=== PATIENT | male | born 1960 | race Caucasian/White ===

== ENCOUNTER 2023-07-24 04:28 | Inpatient (IN) | payer SELFPAY ==
[2023-07-24] MEDS ORDERED: METOCLOPRAMIDE 10 MG/2mL INJ ONE (04:57)
[2023-07-24] MEDS ORDERED: DIPHENHYDRAMINE 50 MG/ML VIAL ONE (04:57)
[2023-07-24] MEDS ORDERED: ONDANSETRON 4 MG/2 ML VIAL ONE (04:58)
[2023-07-24] MEDS ORDERED: NA CHLORIDE 0.9% 50 ML ONE (04:58)
[2023-07-24] MEDS ORDERED: MORPHINE 4 MG/ML SYR ONE ×2 (04:58→09:54)
[2023-07-24] MEDS ORDERED: NA CHLORIDE 0.9% 1,000 ML ONE ×2 (04:58→09:54)
[2023-07-24] MEDS ORDERED: dexAMETHasone 10 MG/ML VIAL ONE ×3 (04:58→08:04)
[2023-07-24] MEDS ORDERED: CEFTRIAXONE 1000 MG/VIAL ONE ×2 (04:58→07:38)
[2023-07-24] MEDS ORDERED: FAMOTIDINE 20 MG/2 ML VIAL IV ONE (05:26)
[2023-07-24 05:28] LABS: Absolute Lymphocytes (CBC) 1.1 K/uL (0.7-4.9); Hematocrit 43.1 % (39.6-49.0); Lymphocytes % 13.7 % (15.3-44.8); MCV 104.3 fL (80-100); MPV 9.8 fL (7.6-11.3); Platelets 69 thou/uL (152-406); RBC Red Blood Cell Count 4.13 M/uL (4.33-5.43)
[2023-07-24 05:29] LABS: Protime INR 1.27
[2023-07-24 06:04] LABS: Albumin 3.5 g/dL (3.4-5.0); Bilirubin Direct 0.9 mg/dL (0-0.2); Bilirubin Indirect, Calculated 1.8 mg/dL (0.2-0.8); Bilirubin Total 2.7 mg/dL (0.2-1.0); C-Reactive Protein 7.47 mg/L (<3.00); Magnesium 1.8 mg/dL (1.6-2.4); Potassium 3.4 mEq/L (3.5-5.1); Protein, Total 8.5 g/dL (6.4-8.2); Troponin High Sensitivity 9.6 pg/mL (<58.9)
[2023-07-24] MEDS ORDERED: KETOROLAC 30 MG/ML INJ ONE (06:28)
--- NOTE | 2023-07-24 06:53 | ER ---
Nurse's Notes [facility] Name: Bennie Benitez Age: 62 yrs Sex: Male : 1960 Arrival Date: 07/24/2023 Time: 04:28 Bed 20 Private MD: Diagnosis: Acute tonsillitis, unspecified-uvulitis;Dysphagia, oropharyngeal phase Presentation: 07/24 04:38 Chief complaint: Patient states: "I am all sweaty and I've been vomiting blood. I feel as6 like my throat is closing up and I'm having chest pain" onset was 3-4 hr lighter captain. Coronavirus screen: At this time, the client does not indicate any symptoms associated with coronavirus-19. Ebola Screen: No symptoms or risks identified at this time. Initial Sepsis Screen: Does the patient meet any 2 criteria? No. Patient's initial sepsis screen is negative. Does the patient have a suspected source of infection? No. Patient's initial sepsis screen is negative. Risk Assessment: Do you want to hurt yourself or someone else? Patient reports no desire to harm self or others. Onset of symptoms was July 24, 2023 at 01:00. 04:38 Acuity: MIKAYLA 2 as6 04:38 Method Of Arrival: Ambulatory as6 Historical: - Allergies: 04:38 PENICILLINS; as6 - Home Meds: 04:38 None [Active]; as6 - PMHx: 04:38 rheumatic fever ( as a child); as6 - PSHx: 04:38 None; as6 - Immunization history:: Adult Immunizations not up to date. - Social history:: Smoking status: Patient denies any tobacco usage or history of. Patient uses alcohol. - Family history:: not pertinent. Screenin:38 [facility] ED Fall Risk Assessment (Adult) History of falling in the last 3 months, jj7 including since admission No falls in past 3 months (0 pts) Confusion or Disorientation No (0 pts) Intoxicated or Sedated No (0 pts) Impaired Gait No (0 pts) Mobility Assist Device Used No (0 pt) Altered Elimination No (0 pt) Score/Fall Risk Level 0 - 2 = Low Risk Oriented to surroundings, Maintained a safe environment, Educated pt \\T\\ family on fall prevention, incl call for assistance when getting out of bed. Abuse screen: Denies threats or abuse. Nutritional screening: No deficits noted. Tuberculosis screening: No symptoms or risk factors identified. Assessment: 04:38 General: Appears distressed, uncomfortable, Behavior is cooperative, appropriate for j age, anxious. Pain: Complains of pain in thyroid cartilage, right aspect of thyroid and left aspect of thyroid. GI: SPITTING UP BLOOD TINGED PHLEGM Reports nausea, vomiting. EENT: Reports SORE THROAT. 07:00 Reassessment: REPORT GIVEN TO BRIAN DOBBS. jj7 07:25 Reassessment: Pt returned from CT scan. rs5 07:30 General: Appears in no apparent distress. uncomfortable, Behavior is cooperative. Pain: rs5 Complains of pain in neck Pain does not radiate. Pain currently is 7 out of 10 on a pain scale. Quality of pain is described as burning, aching, Pain began 1 day ago. Is continuous. Neuro: Level of Consciousness is awake, alert, obeys commands, Oriented to person, place, time, situation. Cardiovascular: Heart tones S1 S2 present Rhythm is regular. Respiratory: Airway is patent Respiratory effort is even, unlabored, Respiratory pattern is regular, symmetrical, Breath sounds are clear bilaterally. GI: Abdomen is round non-distended, Bowel sounds present X 4 quads. Abd is soft and non tender X 4 quads. : No signs and/or symptoms were reported regarding the genitourinary system. EENT: No signs and/or symptoms were reported regarding the EENT system. EENT: Reports sore throat, pt states "my throats so sore that it's difficult to swallow anything" redness, irritation, and mild swelling noted to back of throat. Derm: Skin is intact, Skin is pink, warm \\T\\ dry. Musculoskeletal: Range of motion: intact in all extremities. 08:00 Reassessment: Patient and/or family updated on plan of care and expected duration. Pain rs5 level reassessed. Patient is alert, oriented x 3, equal unlabored respirations, skin warm/dry/pink. Pain: Complains of pain in neck Pain currently is 3 out of 10 on a pain scale. Quality of pain is described as burning, aching, Is continuous. Neuro:. 08:00 Reassessment: Patient states feeling better. rs5 08:00 Cardiovascular: Denies chest pain. rs5 09:20 Pain: Complains of pain in neck Pain currently is 7 out of 10 on a pain scale. Quality rs5 of pain is described as aching, Is continuous. 09:20 Reassessment: Provider notified pt is experiencing pain . Cardiovascular: Denies chest rs5 pain. 09:30 Reassessment: Provider at bedside. rs5 09:40 Reassessment: Pt has been hospitalized, see [facility] for continuation of pt care. rs5 Vital Signs: 04:37 BP 141 / 86; Pulse 97; Resp 17 S; Temp 97.6(O); Pulse Ox 98% on R/A; Weight 108.86 kg as6 (R); Height 6 ft. 0 in. (R); Pain 7/10; 05:45 BP 130 / 72; Pulse 66; Resp 17; Pulse Ox 93% ; jj7 06:45 BP 133 / 75; Pulse 66; Resp 18; Pulse Ox 98% ; rs5 07:37 BP 139 / 65; Pulse 60; Resp 17; Pulse Ox 99% on R/A; rs5 09:00 BP 131 / 69; Pulse 70; Resp 17; Temp 97.7(O); Pulse Ox 99% on R/A; rs5 04:37 Body Mass Index 32.55 (108.86 kg, 182.88 cm) as6 04:37 Pain Scale: Adult as6 ED Course: 04:37 Patient arrived in ED. as6 04:37 Byron Grace MD is Attending Physician. sp4 04:37 Arm band placed on. EKG completed in triage. Results shown to MD. as6 04:38 Patient has correct armband on for positive identification. Placed in gown. Bed in low jj7 position. Call light in reach. Side rails up X2. 04:38 EKG done, by ED staff, reviewed by Byron Grace MD. jw7 04:39 Jazmine Ribera, RINKU is Primary Nurse. jj7 04:40 Triage completed. as6 04:40 Inserted saline lock: 18 gauge in right antecubital area, using aseptic technique. as6 Blood collected. 04:56 XRAY Chest (1 view) In Process Unspecified. EDMS 05:03 Strep Sent. jj7 05:03 Alcohol Level Sent. jj7 05:03 Influenza Screen (a \\T\\ B) Sent. jj7 05:03 COVID-19 SARS RT PCR Sent. jj7 05:04 Basic Metabolic Panel Sent. jj7 05:04 CBC with Diff Sent. jj7 05:04 LFT's Sent. jj7 05:04 Magnesium Sent. jj7 05:04 NT PRO-BNP Sent. jj7 05:04 PT-INR Sent. jj7 05:04 Troponin HS Sent. jj7 06:51 Harsha Espinosa MD is Hospitalizing Provider. sp4 07:09 CT Soft Tissue Neck W/contr In Process Unspecified. EDMS 07:39 Harsha Espinosa MD is Hospitalizing Provider. hank 09:30 No provider procedures requiring assistance completed. rs5 09:30 Patient admitted, IV remains in place. rs5 Administered Medications: 05:03 Drug: NS 0.9% IV 1000 ml IV at 125 ml/hr continuous Route: IV; Rate: 125 ml/hr; Site: [facility] right antecubital; 05:03 Drug: Ondansetron IVP 4 mg IVP once; over 2 minutes Route: IVP; Site: right antecubital;jj7 05:30 Follow up: Response: Marked relief of symptoms jj7 05:03 Drug: metoCLOPramide IVP 10 mg IVP once; over 1 to 2 minutes Route: IVP; Site: right [facility] antecubital; 05:30 Follow up: Response: Marked relief of symptoms jj7 05:03 Drug: morphine IVP or IV 4 mg IVP once over 4 mins Route: IVP; Infused Over: 4 mins; jj7 Site: right antecubital; 05:30 Follow up: Response: Marked relief of symptoms jj7 05:03 Drug: Rocephin - Rocephin (cefTRIAXone) IVPB 1 grams IVPB once over 30 mins; (mix in 50 jj7 mL NS) Route: IVPB; Infused Over: 30 mins; Site: right antecubital; 05:30 Follow up: IV Status: Completed infusion jj7 05:04 Drug: diphenhydrAMINE IVP 50 mg IVP once Route: IVP; Site: right antecubital; jj7 05:30 Follow up: Response: Marked relief of symptoms jj7 05:04 Drug: Dexamethasone IVP 10 mg IVP once; (not to exceed 40 mg) Route: IVP; Site: right jj7 antecubital; 05:30 Follow up: Response: Marked relief of symptoms jj7 05:14 Drug: Famotidine IVP 20 mg IVP once; dilute with 10 mL 0.9% NaCl; give over 2 minutes jj7 Route: IVP; Site: right antecubital; 07:00 Follow up: Response: No adverse reaction jj7 06:17 Drug: Ketorolac IVP 30 mg IVP once Route: IVP; Site: right antecubital; jj7 06:30 Follow up: Response: Marked relief of symptoms jj7 07:02 Follow up: Response: No adverse reaction jj7 07:30 Drug: Zithromax IVPB 500 mg IVPB once over 1 hrs; mix in 250 mL NS Route: IVPB; Infused rs5 Over: 1 hrs; Site: right antecubital; 07:30 Drug: Decadron - Dexamethasone IVP 10 mg IVP once Route: IVP; Site: right antecubital; rs5 07:30 Drug: Rocephin IV 1 grams IV at per protocol once; Given slow IV push per pharmacy rs5 instructions Route: IV; Rate: per protocol; Site: right antecubital; 08:10 Drug: Potassium PO Effervescent Tablet 25 mEq PO once; dissolve in 4 ounces of water or rs5 juice Route: PO; 08:11 Drug: Decadron - Dexamethasone IVP 10 mg IVP once Route: IVP; Site: right antecubital; rs5 Medication: 04:38 VIS not applicable for this client. jj7 Outcome: 06:52 Decision to Hospitalize by Provider. sp4 07:41 Decision to Hospitalize by Provider. hank 09:30 Admitted to ER Hold. Please see [facility] for further documentation. rs5 09:30 Condition: stable 09:30 Instructed on the need for admit, 14:08 Patient left the ED. aa5 Signatures: Dispatcher [employer] EDRI Ernesto Floyd MD MD cha Calderon, Audri RN RN aa5 Paul Rosales RN RN as6 Johanna Giles RN RN jw7 Jazmine Ribera RN RN jj7 Brian Nguyen RN RN rs5 Byron Grace MD MD sp4 Corrections: (The following items were deleted from the chart) 05:18 05:03 C-REACTIVE PROTEIN+C.LAB.BRZ drawn and sent. jj7 EDRI 09:32 08:00 Reassessment: Patient and/or family updated on plan of care and expected rs5 duration. Pain level reassessed. Patient is alert, oriented x 3, equal unlabored respirations, skin warm/dry/pink. rs5 09:32 08:00 Pain: Complains of pain in neck Pain currently is 3 out of 10 on a pain scale. rs5 Quality of pain is described as burning, aching, Is continuous, rs5 09:57 06:45 BP 130 / 72; Pulse 66bpm; Resp 18bpm; Pulse Ox 98%; jj7 rs5
--- NOTE | 2023-07-24 06:53 | EDPHYS ---
Physician Documentation [facility] Name: Bennie Benitez Age: 62 yrs Sex: Male : 1960 Arrival Date: 07/24/2023 Time: 04:28 Bed 20 Private MD: ED Physician Byron Grace HPI: 07/24 04:40 This 62 yrs old Male presents to ER via Ambulatory with complaints of sore sp4 throat and chest pain . 04:47 Patient is 62-year-old male with no significant past medical history presents with sp4 acute onset of throat discomfort, difficulty swallowing, sensation of throat closure, sore throat feeling unwell overall also complaining of some chest pains. Sore throat and throat swelling began 4 hours prior to arrival. Historical: - Allergies: 04:38 PENICILLINS; as6 - Home Meds: 04:38 None [Active]; as6 - PMHx: 04:38 rheumatic fever ( as a child); as6 - PSHx: 04:38 None; as6 - Immunization history:: Adult Immunizations not up to date. - Social history:: Smoking status: Patient denies any tobacco usage or history of. Patient uses alcohol. - Family history:: not pertinent. ROS: 04:47 Constitutional: Negative for fever, chills, and weight loss, positive sore throat, sp4 positive chest pain, positive vomiting Eyes: Negative for injury, pain, redness, and discharge, 04:47 All other systems are negative, Exam: 04:47 Constitutional: This is a well developed, well nourished patient who is awake, alert, sp4 acutely uncomfortable male, dry heaving on arrival, in acute discomfort Head/Face: Normocephalic, atraumatic. Eyes: Pupils equal round and reactive to light, extra-ocular motions intact. Lids and lashes normal. Conjunctiva and sclera are not injected. Cornea within normal limits. Periorbital areas with no swelling, redness, or edema. ENT: Nares patent. No nasal discharge, no septal abnormalities noted. Tympanic membranes are normal and external auditory canals are clear. Oropharynx positive bilateral significant pharyngeal erythema, positive pharyngeal uvular swelling, no sign of airway obstruction, however patient has trouble tolerating oral secretions. No exudates there is significant uvular swelling Neck: Trachea midline, no thyromegaly or masses palpated, and no cervical lymphadenopathy. Supple, full range of motion without nuchal rigidity, or vertebral point tenderness. Chest/axilla: Normal chest wall appearance and motion. Nontender with no deformity. No lesions are appreciated. Cardiovascular: Regular rate and rhythm with a normal S1 and S2. No gallops, murmurs, or rubs. Normal PMI, no JVD. No pulse deficits. Respiratory: Lungs have equal breath sounds bilaterally, clear to auscultation and percussion. No rales, rhonchi or wheezes noted. No increased work of breathing, no retractions or nasal flaring. Abdomen/GI: Soft, non-tender, with normal bowel sounds. No distension or tympany. No guarding or rebound. No evidence of tenderness throughout. Back: No spinal tenderness. No costovertebral tenderness. Skin: Warm, dry with normal turgor. Normal color with no rashes, no lesions, and no evidence of cellulitis. MS/ Extremity: Pulses equal, no cyanosis. Neurovascular intact. Full, normal range of motion. Neuro: Awake and alert, GCS 15, oriented to person, place, time, and situation. Cranial nerves II-XII grossly intact. Motor strength 5/5 in all extremities. Sensory grossly intact. Psych: Awake, alert, with orientation to person, place and time. Behavior, mood, and affect are within normal limits 04:47 ECG was reviewed by the Attending Physician. EKG at 0 436 there is sinus sp4 tachycardia at 101, no ST elevation or depression, no ectopy, overall normal EKG Vital Signs: 04:37 BP 141 / 86; Pulse 97; Resp 17 S; Temp 97.6(O); Pulse Ox 98% on R/A; Weight 108.86 kg as6 (R); Height 6 ft. 0 in. (R); Pain 7/10; 05:45 BP 130 / 72; Pulse 66; Resp 17; Pulse Ox 93% ; jj7 06:45 BP 133 / 75; Pulse 66; Resp 18; Pulse Ox 98% ; rs5 07:37 BP 139 / 65; Pulse 60; Resp 17; Pulse Ox 99% on R/A; rs5 09:00 BP 131 / 69; Pulse 70; Resp 17; Temp 97.7(O); Pulse Ox 99% on R/A; rs5 04:37 Body Mass Index 32.55 (108.86 kg, 182.88 cm) as6 04:37 Pain Scale: Adult as6 MDM: 04:40 Patient medically screened. sp4 06:51 ED course: Chest X ray - TECHNIQUE: Single AP view of the chest. FINDINGS: Lung volumes sp4 adequate. Cardiac silhouette is normal in size. No pneumothorax. No large pleural effusion. No focal consolidation. No acute bony finding. IMPRESSION: No evidence of acute cardiopulmonary disease. . 07:09 Differential Diagnosis altered mental status, sepsis, flu. Data reviewed: vital signs, sp4 nurses notes, old medical records, lab test result(s), EKG, radiologic studies, CT scan, plain films. Consideration of Admission/Observation Patient was admitted/placed on observation. Escalation of care including admission/observation considered. Management of patient was discussed with the following: Hospitalist: Admitting team . ED course: Patient has a difficult time handling his oral secretions. Patient warrants admission. Ordered CT neck soft tissue with IV contrast to rule out neck abscess. . 07:10 Transition of care: After a detail discussion of the patient's case, care is sp4 transferred to Ernesto Floyd MD. 07/24 04:38 Order name: Basic Metabolic Panel; Complete Time: 06:09 sp4 07/24 04:38 Order name: CBC with Diff; Complete Time: 13:45 sp4 07/24 04:38 Order name: LFT's; Complete Time: 06:09 sp4 07/24 04:38 Order name: Magnesium; Complete Time: 06:09 sp4 07/24 04:38 Order name: NT PRO-BNP; Complete Time: 06:09 sp4 07/24 04:38 Order name: PT-INR; Complete Time: 06:09 sp4 07/24 04:38 Order name: Troponin HS; Complete Time: 06:09 sp4 07/24 04:40 Order name: COVID-19 SARS RT PCR; Complete Time: 06:09 sp4 07/24 04:40 Order name: Influenza Screen (a \T\ B); Complete Time: 06:09 sp4 07/24 04:40 Order name: Alcohol Level; Complete Time: 06:09 sp4 07/24 04:46 Order name: Strep sp4 07/24 05:18 Order name: C-Reactive Protein; Complete Time: 06:09 [facility] 07/24 05:43 Order name: Throat Culture [facility] 07/24 05:44 Order name: CBC Smear Scan; Complete Time: 13:45 [facility] 07/24 10:55 Order name: Phosphorus; Complete Time: 13:45 [facility] 07/24 10:55 Order name: T4 Free; Complete Time: 13:45 [facility] 07/24 10:55 Order name: Magnesium; Complete Time: 13:45 [facility] 07/24 10:55 Order name: Thyroid Stimulating Hormone; Complete Time: 13:45 [facility] 07/24 04:38 Order name: XRAY Chest (1 view); Complete Time: 13:45 [facility] 07/24 06:48 Order name: CT Soft Tissue Neck W/contr; Complete Time: 13:45 [facility] 07/24 13:39 Order name: CT; Complete Time: 13:45 [facility] 07/24 04:38 Order name: EKG; Complete Time: 04:39 [facility] 07/24 08:58 Order name: CONS Physician Consult [facility] 07/24 09:00 Order name: Speech Therapy Consult [facility] 07/24 04:38 Order name: Cardiac monitoring; Complete Time: 04:38 [facility] 07/24 04:38 Order name: EKG - Nurse/Tech; Complete Time: 04:38 [facility] 07/24 04:38 Order name: IV Saline Lock; Complete Time: 04:41 [facility] 07/24 04:38 Order name: Labs collected and sent; Complete Time: 05:04 [facility] 07/24 04:38 Order name: O2 Per Protocol; Complete Time: 04:38 [facility] 07/24 04:38 Order name: O2 Sat Monitoring; Complete Time: 04:38 [facility] 07/24 07:21 Order name: PO challenge; Complete Time: 08:13 hank EC:47 Rate is 101 beats/min. Rhythm is regular, Sinus tachycardia. QRS Dexter is Normal. [place] sp4 interval is normal. QRS interval is normal. QT interval is normal. T waves are Normal. No ST changes noted. Clinical impression: Sinus tachycardia and No evidence of ischemia. Interpreted by me. Reviewed by me. Administered Medications: 05:03 Drug: NS 0.9% IV 1000 ml IV at 125 ml/hr continuous Route: IV; Rate: 125 ml/hr; Site: j right antecubital; 05:03 Drug: Ondansetron IVP 4 mg IVP once; over 2 minutes Route: IVP; Site: right antecubital;jj7 05:30 Follow up: Response: Marked relief of symptoms jj7 05:03 Drug: metoCLOPramide IVP 10 mg IVP once; over 1 to 2 minutes Route: IVP; Site: right [facility] antecubital; 05:30 Follow up: Response: Marked relief of symptoms jj7 05:03 Drug: morphine IVP or IV 4 mg IVP once over 4 mins Route: IVP; Infused Over: 4 mins; jj7 Site: right antecubital; 05:30 Follow up: Response: Marked relief of symptoms jj7 05:03 Drug: Rocephin - Rocephin (cefTRIAXone) IVPB 1 grams IVPB once over 30 mins; (mix in 50 jj7 mL NS) Route: IVPB; Infused Over: 30 mins; Site: right antecubital; 05:30 Follow up: IV Status: Completed infusion jj7 05:04 Drug: diphenhydrAMINE IVP 50 mg IVP once Route: IVP; Site: right antecubital; jj7 05:30 Follow up: Response: Marked relief of symptoms jj7 05:04 Drug: Dexamethasone IVP 10 mg IVP once; (not to exceed 40 mg) Route: IVP; Site: right [facility] antecubital; 05:30 Follow up: Response: Marked relief of symptoms jj7 05:14 Drug: Famotidine IVP 20 mg IVP once; dilute with 10 mL 0.9% NaCl; give over 2 minutes jj7 Route: IVP; Site: right antecubital; 07:00 Follow up: Response: No adverse reaction jj7 06:17 Drug: Ketorolac IVP 30 mg IVP once Route: IVP; Site: right antecubital; jj7 06:30 Follow up: Response: Marked relief of symptoms jj7 07:02 Follow up: Response: No adverse reaction jj7 07:30 Drug: Zithromax IVPB 500 mg IVPB once over 1 hrs; mix in 250 mL NS Route: IVPB; Infused rs5 Over: 1 hrs; Site: right antecubital; 07:30 Drug: Decadron - Dexamethasone IVP 10 mg IVP once Route: IVP; Site: right antecubital; rs5 07:30 Drug: Rocephin IV 1 grams IV at per protocol once; Given slow IV push per pharmacy rs5 instructions Route: IV; Rate: per protocol; Site: right antecubital; 08:10 Drug: Potassium PO Effervescent Tablet 25 mEq PO once; dissolve in 4 ounces of water or rs5 juice Route: PO; 08:11 Drug: Decadron - Dexamethasone IVP 10 mg IVP once Route: IVP; Site: right antecubital; rs5 Disposition Summary: 07/24/23 07:41 Hospitalization Ordered Notes: Hospitalization Status: Observation(07/24/23 07:41) hank Provider: Harsha Espinosa(07/24/23 07:41) hank Location: Telemetry/MedSurg (observation)(07/24/23 07:41) hank Condition: Stable(07/24/23 07:41) hank Problem: new(07/24/23 07:41) hank Symptoms: have improved(07/24/23 07:41) hank Bed/Room Type: Standard(07/24/23 07:41) hank Room Assignment: 220(07/24/23 12:43) bd Diagnosis - Acute tonsillitis, unspecified - uvulitis hank - Dysphagia, oropharyngeal phase hank Forms: - Medication Reconciliation Form hank - SBAR form hank - Leadership Thank You Letter hank Signatures: Dispatcher [employer] EDAnalia Noel Corey, MD MD cha Slawson, Ashby, RN RN as6 Jazmine Ribera RN RN jj7 Brian Nguyen RN RN rs5 Byron Grace MD MD sp4 Corrections: (The following items were deleted from the chart) 05:18 04:41 C-REACTIVE PROTEIN+C.LAB.BRZ ordered. EDMS EDMS 07:10 06:52 Observation sp4 sp4 07:10 06:52 Harsha Espinosa sp4 sp4 07:10 06:52 Telemetry/MedSurg (observation) sp4 sp4 07:10 06:52 Stable sp4 sp4 07:10 06:52 new sp4 sp4 07:10 06:52 have improved sp4 sp4 07: 06:52 Standard sp4 sp4 07: 06:52 sp4 sp4 07:10 06:52 Acute laryngopharyngitis sp4 sp4 07: 06:52 Acute moderate to severe pharyngitis, inability to swallow, sp4 sp4 12:43 07:41 hank bd
[2023-07-24] MEDS ORDERED: NA CHLORIDE 0.9% 250 ML ONE (07:26)
[2023-07-24] MEDS ORDERED: AZITHROMYCIN 500 MG INJ IVPB ONE (07:26)
--- NOTE | 2023-07-24 07:42 | RAD REPORT ---
EXAM DESCRIPTION: CT - Soft Tissue Neck W/Contr CLINICAL HISTORY: neck pain and throat swelling Neck pain, swelling COMPARISON: No comparisons TECHNIQUE All CT scans are performed using dose optimization technique as appropriate and may includ e automated exposure control or mA/KV adjustment according to patient size. FINDINGS: Nasopharyngeal tissues are normal in appearance. Fossa Rosenmller are normal. Parapharyngeal fat triangles are symmetric. Mild prominence of the palatine tonsils, greater on the r ight. No peritonsillar abscess. Epiglottis and aryepiglottic folds are normal. Piriform sinuses are well aerated. There is prominent soft tissue swelling seen involving the supraglottic larynx posterior tissues. Asy mmetry of the vocal cords is also present with somewhat irregular appearance. No abscess seen. Salivary glands are normal in appearance. Normal size thyroid gland. Upper lung ramirez are clear. Included intracranial contents are unremarkable. Mildly prominent jugulodigastric chain lymph nodes bilaterally. IMPRESSION: Prominent soft tissue swelling in the region of the glottis and supraglottis as detailed . Abnormal asymmetric appearance of the vocal cords also present. Followup direct visualization would be recommended for further detailed evaluation.
[2023-07-24] MEDS ORDERED: POTASSIUM 25 MEQ EFFERV TAB ONE (08:04)
[2023-07-24 08:15] LABS: Blood Morphology Comment NOTED (NOT SEEN); Macrocytosis 1+; Platelet Estimate DECR; White Blood Cell Scan OK (OK)
[2023-07-24] MEDS ORDERED: ACETAMINOPHEN 650MG/RECT SUPP PR PRN (08:58)
[2023-07-24] MEDS ORDERED: KCL 20 MEQ/100 mL IVPB 20 MEQ/100 ML BAG IV SCH (09:00)
[2023-07-24] MEDS ORDERED: ONDANSETRON 4 MG/2 ML VIAL IV PRN (09:19)
[2023-07-24] MEDS ORDERED: HYDRALAZINE HCL 20 MG/ML VIAL IV PRN (09:20)
--- NOTE | 2023-07-24 09:21 | P.HP ---
Certification for Inpatient Patient admitted to: Inpatient With expected LOS: >2 Midnights Patient will require the following post-hospital care: None Practitioner: I am a practitioner with admitting privileges, knowledge of patient current condition, hospital course, and medical plan of care. Services: Services provided to patient in accordance with Admission requirements found in Title 42 Section 412.3 of the Code of Federal Regulations Patient History Date of Service: 07/24/23 Reason for admission: Abd pain, chest pain, sob History of Present Illness: Patient is a 62-year-old male with a past medical history significant for rheumatic fever who presents with complaint of shortness of breath, chest pain and abdominal pain onset yesterday. Patient reported that he started having nausea and vomiting. Shortly after he developed hematemesis. Patient stated that chest pain radiates across his entire chest wall. Patient rated pain as 10/10 in severity and describes it as pressure in quality. Patient also reported abdominal pain rated as 8/10 severity, described pain as sharp in quality. Patient reported that abdominal pain is located in the right lower quadrant. Patient stated that chest pain and abdominal pain has been intermittent. Patient reported associated signs and symptoms of headache, lightheadedness, shortness shortness of breath, throat swelling and dysphagia. Patient denies any other signs and symptoms. Symptoms are aggravated or relieved by nothing. Patient decided to present to the hospital due to worsening symptoms. Allergies Penicillins Allergy (Verified 07/24/23 23:40) Shortness of breath - Past Medical/Surgical History -: Rheumatic fever Past Surgical History: Patient denies surgical history - Family History Father -: Other (see notes) (AAA rupture) - Social History Smoking Status: Former smoker Alcohol use: Yes CD- Drugs: No Caffeine use: Yes Place of Residence: Home Review of Systems General: Unremarkable Eyes: Unremarkable ENT: Throat Swelling, Other (dysphagia) Respiratory: Shortness of Breath Cardiovascular: Chest Pain Gastrointestinal: Nausea, Vomiting, Abdominal Pain, Other (Hematemesis ) Genitourinary: Unremarkable Musculoskeletal: Unremarkable Integumentary: Unremarkable Neurological: Other (lightheadedness, LUGO) Lymphatics: Unremarkable Physical Examination - Physical Exam General: Alert, Oriented x3, Cooperative, Mild distress HEENT: Atraumatic, PERRLA, Mucous membr. moist/pink, EOMI, Sclerae nonicteric Neck: Supple, 2+ carotid pulse no bruit, No LAD, Without JVD or thyroid abnormality Respiratory: Clear to auscultation bilaterally, Normal air movement Cardiovascular: No edema, Regular rate/rhythm, Normal S1 S2 Capillary refill: <2 Seconds Gastrointestinal: Normal bowel sounds, Tenderness Musculoskeletal: No clubbing, No swelling, No tenderness Integumentary: No rashes, No breakdown Neurological: Normal gait, Normal speech, Normal strength at 5/5 x4 extr, Normal tone, Normal affect Lymphatics: No axilla or inguinal lymphadenopathy - Studies Laboratory Data (last 24 hrs) 07/24/23 07/24/23 07/24/23 04:50 04:50 04:50 WBC 8.40 Hgb 15.0 Hct 43.1 Plt Count 69 L PT 14.0 H INR 1.27 Sodium 138 Potassium 3.4 L BUN 8 Creatinine 0.98 Glucose 150 H Magnesium 1.8 Total Bilirubin 2.7 H AST 95 H ALT 36 Alkaline Phosphatase 172 H Microbiology Data (last 24 hrs): 07/24/23 04:58 Nasopharnyx Influenza Type A Antigen Screen - Final 07/24/23 04:58 Nasopharnyx Influenza Type B Antigen Screen - Final 07/24/23 04:58 Throat Group A Streptococcus Rapid Screen - Final Assessment and Plan - Plan --Acute tonsillitis\\uvulitis. CT soft tissue neck Indicates "Prominent soft tissue swelling in the region of the glottis and supraglottis as detailed. Abnormal asymmetric appearance of the vocal cords also present. Followup direct visualization would be recommended for further detailed evaluation". ENT MD consulted. Throat culture and group A Strep test pending. Patient placed on antibiotics. Will await further recommendations from commercial solar sales consultant. --Chest pain. Likely atypical. Serial troponins negative so far. Telemetry to monitor for any significant arrhythmia. --Hematemesis. H&H stable. Patient placed on Protonix. Will continue to monitor hemoglobin and transfuse if less than 7.0 --Abdominal pain. CT abdomen indicates "Cirrhosis with evidence of portal hypertension including splenomegaly. Wall thickening of distal esophagus could be from esophagitis or possibly varices in the setting of portal hypertension". H\\H stable. Patient on Protonix. Will manage pain with current medication regimen --Nausea and vomiting. Antiemetics on board. Continue supportive care. --Dysphagia. Speech therapist consulted and ENT on board. Will await further recommendations. --Hypokalemia. Replete as needed. --DVT prophylaxis with SCDs. Discharge Plan: Home Plan to discharge in: Greater than 2 days - Advance Directives Does patient have a Living Will: No Does patient have a Durable POA for Healthcare: No - Code Status/Comfort Care Code Status Assessed: Yes Physician Review: Patient Assessed, Agree with Above Assessment and Plan
[2023-07-24] MEDS: NA CHLORIDE 0.9% 1,000 ML IV SCH (09:40)
[2023-07-24] MEDS: MORPHINE 4 MG/ML SYR IV PRN ×2 (09:40→21:57)
[2023-07-24] MEDS ORDERED: KCL 20 MEQ/100 mL IVPB 100 ML IV ONE (09:54)
[2023-07-24 10:13] VITALS: BMI 30.7
[2023-07-24 10:55] LABS: Magnesium 1.7 mg/dL (1.6-2.4); Phosphorus 1.8 mg/dL (2.5-4.9); Thyroid Stimulating Hormone 2.19 uIU/mL (0.358-3.740)
[2023-07-24] MEDS ORDERED: INFLUENZA VACCINE (for 6+ mo) 0.5 ML DOSE IMVAC ONE (11:00)
--- NOTE | 2023-07-24 12:55 | RAD REPORT ---
EXAM DESCRIPTION: Chest Single View CLINICAL HISTORY: CHEST PAIN COMPARISON: None TECHNIQUE: Single AP view of the chest. FINDINGS: Lung volumes adequate. Cardiac silhouette is normal in size. No pneumothorax. No large pleural effusion. No focal consolidation. No acute bony finding. IMPRESSION: No evidence of acute cardiopulmonary disease. Electronically signed by: Muna Darden MD 07/24/2023 05:15 AM [employer] WORKER APPRENTICE Due to temporary technical issues with the PACS/Fluency reporting system, reports are being signed by the in house radiologists without review as a courtesy to insure prompt reporting. The interpreting radiologist is fully responsible for the content of the report.
--- NOTE | 2023-07-24 13:39 | RAD REPORT ---
EXAM DESCRIPTION: CTAbdomen Pelvis Wo Contrast - 07/24/2023 1:27 pm CLINICAL HISTORY: Abd pain COMPARISON: No comparisons TECHNIQUE: CT of the abdomen and pelvis was performed. All CT scans are performed using dose optimization technique as appropriate and may include automated exposure control or mA/KV adjustment according to patient size. FINDINGS: Lower chest: Moderately thickened distal esophagus. Liver: Cirrhosis. Evaluation for mass limited without IV contrast. Biliary: Cholelithiasis without CT evidence of acute cholecystitis. Stomach: No significant focal abnormality. Duodenum: No significant focal abnormality. Pancreas: No significant abnormality. Spleen: Splenomegaly. The spleen measures approximately 15 cm in CC dimension . Adrenal: No suspicious lesions. Kidney/ureter: No hydronephrosis. No renal calculi. Retroperitoneum: No retroperitoneal adenopathy. Vascular: No aneurysm. Bowel: No significant focal abnormality. No appendicitis Peritoneum: No ascites or free air. Bladder: Grossly unremarkable. Reproductive: No adnexal masses. Bones: No acute fracture. Other: n/a IMPRESSION: Cirrhosis with evidence of portal hypertension including splenomegaly. Wall thickening o f distal esophagus could be from esophagitis or possibly varices in the setting of portal hypertensio n. Endoscopy could further evaluate.
[2023-07-24] MEDS ORDERED: SODIUM CHLORIDE 0.9% 10ML INJ IV PRN (22:28)
[2023-07-25] MEDS: NA CHLORIDE 0.9% 1,000 ML IV SCH (00:34)
[2023-07-25] MEDS: PANTOPRAZOLE 40 MG INJ IVP SCH ×2 (01:21→09:31)
[2023-07-25 02:45] LABS: Absolute Lymphocytes (CBC) 0.6 K/uL (0.7-4.9); Lymphocytes % 6.7 % (15.3-44.8); MCV 104.4 fL (80-100); MPV 10.6 fL (7.6-11.3); Platelets 53 thou/uL (152-406); RBC Red Blood Cell Count 3.74 M/uL (4.33-5.43)
[2023-07-25 03:03] LABS: Potassium 4.5 mEq/L (3.5-5.1)
[2023-07-25 04:40] LABS: Blood Morphology Comment NOT SEEN (NOT SEEN); Platelet Estimate DECR
[2023-07-25 08:59] VITALS: BP 115/60; TEMP 98.5
[2023-07-25] MEDS ORDERED: AZITHROMYCIN IV 500 MG in NA CHLORIDE 0.9% 250 ML IVPB SCH (09:00)
[2023-07-25] MEDS ORDERED: ENOXAPARIN 40 MG/0.4 ML SQ SCH (09:00)
[2023-07-25] MEDS ORDERED: CEFTRIAXONE 1,000 MG in NA CHLORIDE 0.9% 50 ML IVPB SCH (09:00)
[2023-07-25 09:31] VITALS: O2SAT 96
--- NOTE | 2023-07-25 11:16 | P.DS ---
Admission Date: 07/24/23 Discharge Date: 07/25/23 Disposition: AMA-LEFT AGAINST MEDICAL ADVIC Discharge Condition: FAIR Reason for Admission: Abd pain, chest pain, sob Brief History of Present Illness: Patient is a 62-year-old male with a past medical history significant for rheumatic fever who presents with complaint of shortness of breath, chest pain and abdominal pain onset yesterday. Patient reported that he started having nausea and vomiting. Shortly after he developed hematemesis. Patient stated that chest pain radiates across his entire chest wall. Patient rated pain as 10/10 in severity and describes it as pressure in quality. Patient also reported abdominal pain rated as 8/10 severity, described pain as sharp in quality. Patient reported that abdominal pain is located in the right lower quadrant. Patient stated that chest pain and abdominal pain has been intermittent. Patient reported associated signs and symptoms of headache, lightheadedness, shortness shortness of breath, throat swelling and dysphagia. Patient denies any other signs and symptoms. Symptoms are aggravated or relieved by nothing. Patient decided to present to the hospital due to worsening symptoms. Vital Signs/Physical Exam: Temp Pulse Resp BP Pulse Ox 98.5 F 43 L 14 115/60 94 07/25/23 08:00 07/25/23 08:00 07/25/23 08:00 07/25/23 08:00 07/25/23 08:00 Laboratory Data at Discharge: WBC 9.00 thou/uL (4.3-10.9) 07/25/23 01:53 Hgb 13.2 g/dL (13.6-17.9) L D 07/25/23 01:53 Hct 39.0 % (39.6-49.0) L 07/25/23 01:53 Plt Count 53 thou/uL (152-406) L 07/25/23 01:53 PT 14.0 SECONDS (9.5-12.5) H 07/24/23 04:50 INR 1.27 07/24/23 04:50 Sodium 136 mEq/L (136-145) 07/25/23 01:53 Potassium 4.5 mEq/L (3.5-5.1) D 07/25/23 01:53 BUN 15 mg/dL (7-18) 07/25/23 01:53 Creatinine 1.07 mg/dL (0.70-1.30) 07/25/23 01:53 Glucose 151 mg/dL (74-106) H 07/25/23 01:53 Phosphorus 1.8 mg/dL (2.5-4.9) L 07/24/23 10:15 Magnesium 1.7 mg/dL (1.6-2.4) 07/24/23 10:15 Total Bilirubin 2.7 mg/dL (0.2-1.0) H 07/24/23 04:50 AST 95 U/L (15-37) H 07/24/23 04:50 ALT 36 U/L (16-61) 07/24/23 04:50 Alkaline Phosphatase 172 U/L (45-117) H 07/24/23 04:50 Followup: NONE,NONE [Primary Care Provider] -
[2023-07-25] MEDS ORDERED: INFLUENZA VACCINE (for 6+ mo) 0.5 ML DOSE IMVAC ONE (12:00)
--- NOTE | 2023-07-25 16:53 | EKG ---
Test Date: 2023-07-24 Test Time: 04:36:15 Cook Pressure: HEATHER MEASUREMENT RESULTS: Intervals: Rate: 101 ME: 178 QRSD: 94 QT: 380 QTc: 492 [place]: P: 45 ME: 178 QRS: -58 T: 44 INTERPRETIVE STATEMENTS: Sinus tachycardia Left anterior fascicular block Cannot rule out Anterior infarct, age undetermined Abnormal ECG Compared to ECG 11/12/2016 17:08:21 Left anterior fascicular block now present Myocardial infarct finding now present Sinus rhythm no longer present Left-axis deviation no longer present Electronically Signed On 07-25-23 16:50:06 [employer] by Sukumar Huitron
== END 2023-07-25 10:07 | disposition left against medical advice (07) | DRG 158 ==
LOC: ER 04:28 → ERHOLD 09:06 → 2ND 13:59
PROVIDERS: ADMIT Internal Medicine Nephrology; ATTEND Internal Medicine Nephrology
DX: K12.2 Cellulitis and abscess of mouth (principal); K76.6 Portal hypertension; K92.0 Hematemesis; J03.90 Acute tonsillitis, unspecified; K74.60 Unspecified cirrhosis of liver; E87.6 Hypokalemia; R13.10 Dysphagia, unspecified; Z88.0 Allergy status to penicillin; Z11.52 Encounter for screening for COVID-19; Z87.891 Personal history of nicotine dependence
CPT/HCPCS: 36415; 70491; 71045; 74176; 80048; 80076; 82077; 83735; 83880; 84100; 84439; 84443; 84484; 85025; 85610; 86140; 87070; 87081; 87635; 87804; 92610; 93005; 96365; 96375; 99285; C9113; J0696; J1100; J1200; J2405; J2765; J3480; J7030; J7050; Q9967